=== PATIENT | male | born 1970 | race Caucasian/White ===

== ENCOUNTER 2018-09-27 17:45 | Emergency (ER) | payer OTHER ==
[2018-09-27] MEDS ORDERED: Oxycodone/Acetaminophen 5/325 mg Tab PO STA (19:03)
[2018-09-27] MEDS ORDERED: Oxycodone/Acetaminophen 5/325 mg Tab ONE (19:13)
--- NOTE | 2018-09-27 20:45 | C.PDOC ---
History Of Present Illness 48 year old male presents to the ED c/o left scrotal pain for the past 4 days. Patient denies fever, chills, abdominal pain, nausea, vomit, diarrhea, penile discharge, injury, fall, trauma. Time Seen by Provider: 09/27/18 18:52 Chief Complaint (Nursing): Male Genitourinary History Per: Patient History/Exam Limitations: no limitations Onset/Duration Of Symptoms: Days (4) Current Symptoms Are (Timing): Still Present Quality Of Discomfort: "Pain" Associated Symptoms: denies: Nausea, Vomiting, Diarrhea, Urinary Symptoms Recent travel outside of the [place]: No Additional History Per: Patient Past Medical History Reviewed: Historical Data, Nursing Documentation, Vital Signs Vital Signs: Last Vital Signs Temp 98.5 F 09/27/18 17:50 Pulse 105 H 09/27/18 17:50 Resp 20 09/27/18 17:50 BP 132/84 09/27/18 17:50 Pulse Ox 95 09/27/18 17:50 - Medical History PMH: Arthritis (arthritis of both knees), Depression, HTN Denies: Chronic Kidney Disease Surgical History: No Surg Hx - [facility] Procedures COLONOSCOPY (07/01/14) Family History: States: Unknown Family Hx - Social History Hx Tobacco Use: No Hx Alcohol Use: Yes Hx Substance Use: No - Immunization History Hx Tetanus Toxoid Vaccination: No Hx Influenza Vaccination: No Hx Pneumococcal Vaccination: No Review Of Systems Constitutional: Negative for: Fever, Chills Cardiovascular: Negative for: Chest Pain Respiratory: Negative for: Shortness of Breath Gastrointestinal: Negative for: Nausea, Vomiting, Abdominal Pain Genitourinary: Positive for: Scrotal Pain. Negative for: Dysuria, Penile Pain Musculoskeletal: Negative for: Back Pain Skin: Negative for: Rash Physical Exam - Physical Exam Appears: Non-toxic, No Acute Distress Skin: Normal Color, Warm, Dry Head: Atraumatic, Normacephalic Eye(s): bilateral: Normal Inspection Neck: Normal ROM, Supple Chest: Symmetrical Cardiovascular: Rhythm Regular Respiratory: Normal Breath Sounds, No Rales, No Rhonchi, No Wheezing Gastrointestinal/Abdominal: Soft, No Tenderness, No Guarding, No Rebound Male Genital: Testicular Swelling (left slight ), No Scrotal Swelling, No Circumcised (Uncircumcised ), Other (vetiligo in the scrotum, no lesions) Extremity: Normal ROM, No Tenderness, No Swelling Neurological/Psych: Oriented x3, Normal Speech, Normal Cognition Gait: Steady ED Course And Treatment O2 Sat by Pulse Oximetry: 95 (ON RA) Pulse Ox Interpretation: Normal - CT Scan/US Testicualr US Other Rad Studies (CT/US): Read By Radiologist, Radiology Report Reviewed CT/US Interpretation: History. Testicular pain. Technique. Realtime sonography through the scrotum with color and Doppler flow. Comparison. None Available. Findings. Right Testicle. Measures 4.74 x 2.14 x 2.81 cm. Normal echotexture and flow. Right Epididymis. Epididymal head measures 1.27 x 0.91 x 0.85 cm. Grossly unremarkable appearance with normal flow. Cysts measure 0.32 x 0.24 x 0.24 cm and 0.4 x 0.39 x 0.57 cm. Left Testicle. Measures 3.97 x 2.27 x 2.91 cm. Normal echotexture and flow. Left Epididymis. Epididymal head measures 1.9 x 1.86 x 1.03 cm. Grossly unremarkable appearance with normal flow. Cyst measures 0.9 x 0.8 x 0.64 cm. Left epididymitis. Hydrocele. Bilateral. Varicocele. Bilateral. Other Findings. None. Impression. 1. Bilateral epididymal cysts. 2. Bilateral hydroceles. 3. Bilateral varicoceles. 4. Left epididymitis. . Electronically signed on Sep 27, 2018 9:17:46 PM EDT by: Maurizio Poole M.D., ADEOLA Certified By [facility]BR & [facility]. Fellowship Trained MRI and CT Specialist. Medical Decision Making Medical Decision Making: Plan: * Labs * Motrin 600 mg PO * Percocet 1 tab PO * Urien culture * UA * Testicular US Disposition Counseled Patient/Family Regarding: Studies Performed, Diagnosis, Need For Followup, Rx Given - Disposition Referrals: Khanh Meyer MD [Staff Provider] - Disposition: HOME/ ROUTINE Disposition Time: 21:27 Condition: STABLE Additional Instructions: follow up with urology within 2 days call to make an appointment take medication as prescribed return to ER if symptoms worsens or progress Prescriptions: Levofloxacin [Levaquin] 500 mg PO DAILY #10 tablet Naproxen [Naprosyn] 500 mg PO BID PRN #16 tab PRN Reason: Pain, Moderate (4-7) Instructions: Epididymitis (DC) Forms: [facility] (Greenlandic), General Discharge Instructions - Clinical Impression Clinical Impression: Epididymitis - Scribe Statement The provider has reviewed the documentation as recorded by the Scribe Nick Bwoer All medical record entries made by the Scribe were at my direction and personally dictated by me. I have reviewed the chart and agree that the record accurately reflects my personal performance of the history, physical exam, medical decision making, and the department course for this patient. I have also personally directed, reviewed, and agree with the discharge instructions and disposition.
[2018-09-27 21:38] VITALS: BP 117/80; PULSE 86; RESP 18; TEMP 98.3; O2SAT 98
--- NOTE | 2018-09-27 22:06 | US ---
Testicular ultrasound HISTORY: Testicular pain Comparison: None available. FINDINGS: Right testes: 4.7 x 2.1 x 2.8 centimeters. Homogeneous echotexture. Normal flow. Right epididymis: 1.2 x 0.9 x 0.9 centimeters. Normal flow. Right epididymal cysts measuring 3 x 2 x 2 millimeters and 4 x 4 x 6 millimeters. Small right scrotal hydrocele. Right testicular varicocele. Left testes: 4.0 x 2.3 x 2.9 centimeters. Normal flow. Homogeneous echotexture. Left epididymis thickened and enlarged measures 1.9 x 1.9 x 1.0 centimeters. Increased flow. Hypoechoic cyst measuring 7 x 8 x 6 millimeters. Moderate to large left scrotal hydrocele. Left scrotal varicocele. Impression: Increased flow in the left epididymis which appears thickened and heterogeneous suggestive for a left epididymitis. Moderate to large left scrotal hydrocele. Small right scrotal hydrocele. Bilateral small varicoceles. Bilateral epididymal cysts. A preliminary report was generated at 9:17 p.m. on 09/27/[address] Maurizio Poole from [employer].
== END 2018-09-27 21:45 | disposition home or self-care (01) ==
LOC: C.ER 17:45
DX: N45.1 Epididymitis (principal)